=== PATIENT | female | born 1995 | race Asian ===

== ENCOUNTER 2018-01-19 18:52 | Emergency (ER) | payer SELFPAY ==
[2018-01-19 19:07] VITALS: BP 103/63
--- NOTE | 2018-01-19 19:21 | UC ---
Eye Complaint HPI - HPI Summary HPI Summary: 22 y/o female presents to the urgent care c/o RT lower eyelid red, mild swelling and a painful white pustule since yesterday night. Pt states pain is at touch 2/10 w/ mild yellowish discharge. Pt denies URI, DELGADO, photophobia, dizziness, visual disturbance, sOB, chest pain, abdominal pain, N/V/D. Pt states she runs and does yoga on a daily basis. - History of Current Complaint Hx Obtained From: Patient Hx Last Menstrual Period: 01/16/18 ?: No Onset/Duration: Gradual Onset, Lasting Days - 1 day, Still Present, Worse Since - today Timing: Constant Severity Initially: Mild Severity Currently: Mild Pain Intensity: 2 Pain Scale Used: 0-10 Numeric Location of Injury: Eye Lid (upper) - RT lower eye lid Character: Dull Aggravating Factor(s): Blinking Alleviating Factor(s): Nothing Associated Signs And Symptoms: Positive: Drainage (Purulent) - yellowish at time , Swelling - mild. Negative: Photophobia, Vision Impairment Bilateral, Fever - Risk Factors Penetrating Injury Risk Factor: Negative Globe Rupture Risk Factors: Negative Acute Glaucoma Risk Factors: Negative Optic Artery Occlusion Risk Factors: Negative <Dejah Desai - Last Filed: 01/19/18 19:42> <Khalida Silva - Last Filed: 01/19/18 20:20> - History of Current Complaint Chief Complaint: UCEye Stated Complaint: EYE COMPLAINT Time Seen by Provider: 01/19/18 19:11 - Allergies/Home Medications Allergies/Adverse Reactions: Allergies Allergy/AdvReac Type Severity Reaction Status Date / Time No Known Allergies Allergy Verified 01/19/18 19:08 PMH/Surg Hx/FS Hx/Imm Hx Previously Healthy: Yes - Pt denies PMHX - Surgical History Surgical History: None - Family History Known Family History: Positive: None - Pt denies FMHx - Social History Occupation: Student Lives: Dormitory/Roommates Alcohol Use: None Substance Use Type: None Smoking Status (MU): Never Smoked Tobacco - Immunization History Vaccination Up to Date: Yes <Dejah Desai - Last Filed: 01/19/18 19:42> Review of Systems Constitutional: Negative Skin: Negative Eyes: Eye Redness - left lower eyelid res, swollen w/ white postule ENT: Negative Respiratory: Negative Cardiovascular: Negative Gastrointestinal: Negative Genitourinary: Negative Motor: Negative Neurovascular: Negative Musculoskeletal: Negative Neurological: Negative Psychological: Negative Is Patient Immunocompromised?: No All Other Systems Reviewed And Are Negative: Yes <Dejah Desai - Last Filed: 01/19/18 19:42> Physical Exam - Summary Physical Exam Summary: Vital Signs Reviewed: Yes General: Well appearing, well nourished female in no apparent pain distress Eyes: Positive: B/L Conjunctiva clear Visual acuity: WNL,Visual philip: full to confrontation.mild soft tissue swelling at the RT lower eye lid eyelid with erythema and white small pustule in the middle of lower eyelid, tender to palpation. PERRLA, EOMI intact w/out limitation or complaint of pain. eyelashes clear. mild tearing and yellowish drainage observed. No ciliary flush. No chemosis, No photophobia. Normal fundoscopic exam; no proptosis, exophthalmos, nystagmus. ENT: Positive: Normal ENT inspection, Hearing grossly normal, Pharynx normal, Nasal congestion, Nasal drainage - clear, TMs normal - B/L external ear canal clear , TM's WNL. Negative: Tonsillar swelling, Tonsillar exudate Neck: Positive: Supple, Nontender, No Lymphadenopathy Respiratory: Positive: Chest nontender, Lungs clear, Normal breath sounds, No respiratory distress Cardiovascular: Positive: RRR, No Murmur, Pulses Normal, Brisk Capillary Refill Abdomen Description: Positive: Nontender, No Organomegaly, Soft. Negative: CVA Tenderness (R), CVA Tenderness (L) Bowel Sounds: Positive: Present Musculoskeletal: Positive: Strength Intact, ROM Intact, No Edema Neurological Exam: Normal Psychological Exam: Normal Skin Exam: Normal Triage Information Reviewed: Yes Vital Signs: Initial Vital Signs Temp 97.7 F 01/19/18 19:01 Pulse 47 01/19/18 19:01 Resp 15 01/19/18 19:01 BP 103/63 01/19/18 19:01 Pulse Ox 99 01/19/18 19:01 <Dejah Desai - Last Filed: 01/19/18 19:42> Vital Signs: Initial Vital Signs Temp 97.7 F 01/19/18 19:01 Pulse 47 01/19/18 19:01 Resp 15 01/19/18 19:01 BP 103/63 01/19/18 19:01 Pulse Ox 99 01/19/18 19:01 <Khalida Silva - Last Filed: 01/19/18 20:20> Eye Complaint Course/Dx - Course Course Of Treatment: 22 y/o female presents to the urgent care c/o RT lower eyelid red, mild swelling and a painful white pustule since yesterday night. Pt states pain is at touch 2/10 w/ mild yellowish discharge. Pt denies URI, DELGADO, photophobia, dizziness, visual disturbance, sOB, chest pain, abdominal pain, N/V /D. Pt states she runs and does yoga on a daily basis.Hx obtained. Pt w/ a Rt hordeolum on examination. PT HR: 47bpm. Pt is asymptomatic and she states she does exercise on a daily basis. She was walking 2 miles to get here. Pt Rx Erythromycin Ophthalmic Ointment. Pt advised to apply warm compresses and massage the eye with gentle pressure 4-5 times for 10-15min throughout the day. Then apply ABX and if not improvement of symptoms to f/u with construction materials tester or PCP for further evaluation and treatment. PT understood and agreed with plan of care. - Differential Dx/Diagnosis Differential Diagnosis/HQI/PQRI: Conjunctivitis, Periorbital Cellulitis, Other - [facility] Provider Diagnoses: 1- RT lower eye lid hordeolum <Dejah Desai - Last Filed: 01/19/18 19:42> Discharge <Dejah Desai - Last Filed: 01/19/18 19:42> <Khalida Silva - Last Filed: 01/19/18 20:20> - Discharge Plan Condition: Stable Disposition: HOME Prescriptions: Erythromycin TOPICAL GEL* [Erythromycin OPTH OINT*] 1 applic TOPICAL TID #1 oint Patient Education Materials: [facility] (ED) Referrals: [facility] [Outside] - 1 Week Floyd Aldana MD [Medical Doctor] - If Needed Additional Instructions: 1-Please apply ophthalmic ointment in your RT lower eyelid as directed. Please apply warm compresses and massage the eye with gentle pressure 4-5 times for 10- 15min throughout the day 2- If you do not improve or if symptoms worsen please f/u with PCP or construction materials tester for further evaluation and treatment Attestation Statement User Type: Provider - I was available for consult. This patient was seen by the advanced practice provider. The patient was not presented to, seen by, or examined by me.-Bulmaro <Khalida Silva - Last Filed: 01/19/18 20:20>
== END 2018-01-19 19:41 | disposition home or self-care (01) ==
LOC: UCEAST 18:52
DX: H00.022 Hordeolum internum right lower eyelid (principal)
CPT/HCPCS: 99202; G0463

== ENCOUNTER 2022-09-07 21:29 | Inpatient (IN) ==
[2022-09-07] MEDS ORDERED: Buffered Lidocaine 1% SYRIN 1 ml INTRADERM ONE (21:41)
[2022-09-07] MEDS ORDERED: Lactated Ringers 1000 ml BAG 1,000 ML IV ONE (21:41)
[2022-09-07] MEDS ORDERED: Lactated Ringers 1000 ml BAG 1,000 ML IV SCH ×2 (22:00→23:00)
[2022-09-07] MEDS ORDERED: Witch Hazel PAD JAR TOPICAL PRN (22:25)
[2022-09-07] MEDS ORDERED: Oxytocin 10 UNITS/ML 1 ML VIAL IM ONE (22:25)
[2022-09-07] MEDS ORDERED: Dibucaine 1% OINT 28.35 GM TUBE PR PRN (22:25)
[2022-09-08] MEDS ORDERED: Lidocaine 1% VIAL 10 MG/ML VIAL 30 ML ONE (01:27)
[2022-09-08 13:32] LABS: Urine Benzodiazepine Screen None Detected (None Detect); Urine Cannabinoids Screen None Detected (None Detect); Urine Opiates Screen None Detected (None Detect)
[2022-09-08 14:34] LABS: ABS Eosinophils 0.1 10^3/ul (0-0.6); ABS Monocytes 0.8 10^3/ul (0-0.8); ABS Neutrophils 8.4 10^3/ul (1.5-7.7); Eosinophil % 0.7 %; Hematocrit 38 % (35-47); Hemoglobin 12.6 g/dL (12.0-16.0); Lymphocyte % 17.8 %; Mean Corpuscular HGB Conc 33 g/dL (31-36); Mean Corpuscular Hemoglobin 31 pg (27-31); Mean Corpuscular Volume 93 fL (80-97); Mean Platelet Volume 9.8 fL (7.4-10.4); Platelet Count 192 10^3/uL (150-450); Red Blood Count 4.07 10^6 /uL (3.70-4.87); Red Cell Distribution Width 14 % (10-15); White Blood Count 11.3 10^3/uL (3.5-10.8)
[2022-09-09 08:21] VITALS: BP 91/49
== END 2022-09-09 17:20 | disposition home or self-care (01) | DRG 807 ==
LOC: MCHOBOUT 21:29 → MCHOB 22:30
PROVIDERS: ADMIT Midwife; ATTEND Midwife